=== PATIENT | female | born 1945 | race Caucasian/White ===

== ENCOUNTER → 2018-09-28 | Outpatient (CLI) | payer MEDICARE ==
--- NOTE | 2018-09-28 15:18 | CARD ---
MR#: [id number] Date of Study: 09/28/2018 Ordering Physician: JOSH LEWIS, Referring Physician: JOSH LEWIS Tech: Arabella Khan INESSA APPROVED REPORT EXAM: Two-dimensional and M-mode echocardiogram with Doppler and color Doppler. Other Information Quality : Good INDICATION Peripheral Edema Hypertension/HCVD LV Function:Systolic 2D DIMENSIONS RVDd2.8 (2.9-3.5cm)Left Atrium(2D)3.3 (1.6-4.0cm) IVSd0.9 (0.7-1.1cm)Aortic Root(2D)2.7 (2.0-3.7cm) LVDd4.4 (3.9-5.9cm)LVOT Diameter2.0 (1.8-2.4cm) PWd0.9 (0.7-1.1cm)LVDs2.4 (2.5-4.0cm) FS (%) 30.0 %SV68.3 ml LVEF(%)60.0 (>50%) Aortic Valve AoV Peak Burak.116.1cm/sAoV VTI22.6cm AO Peak GR.5.4mmHgLVOT Peak Burak.105.1cm/s LVOT VTI 20.47cmAO Mean GR.3mmHg AGNES (VMAX)2.48uu0EIV (VTI)2.89cm2 Mitral Valve MV E Dscrkawq23.9cm/sMV DECEL [id number] MV A Lrogauwu96.5cm/sMV TWT17oa E/A Ratio0.5MVA (PHT)2.69cm2 TDI E/Lateral E'9.4E/Medial E'10.7 Pulmonary Vein S1 Jcbmwvrx48.8cm/sD2 Ldkuvrnk11.3cm/s LEFT VENTRICLE The left ventricle is normal size. There is normal left ventricular wall thickness. The left ventricu lar systolic function is normal and the ejection fraction is within normal range. The Ejection Fracti on is 55-60%. There is normal LV segmental wall motion. Transmitral Doppler flow pattern is Grade I-a bnormal relaxation pattern. RIGHT VENTRICLE The right ventricle is normal size. The right ventricular systolic function is normal. ATRIA The left atrium size is normal. The right atrium size is normal. The interatrial septum is intact wit h no evidence for an atrial septal defect or patent foramen ovale as noted on 2-D or Doppler imaging. AORTIC VALVE The aortic valve is calcified but opens well. Doppler and Color Flow revealed trace aortic regurgitat ion. There is no significant aortic valvular stenosis. MITRAL VALVE The mitral valve is calcified but opens well. Mitral annular calcification is mild. There is no evide nce of mitral valve prolapse. There is no mitral valve stenosis. Doppler and Color Flow revealed no m itral valve regurgitation noted. TRICUSPID VALVE The tricuspid valve is normal in structure and function. Doppler and Color Flow revealed trace tricus pid regurgitation. There is no tricuspid valve stenosis. PULMONIC VALVE The pulmonic valve is not well visualized. Doppler and Color Flow revealed no pulmonic valvular regur gitation. There is no pulmonic valvular stenosis. GREAT VESSELS The aortic root is normal in size. The ascending aorta is normal in size. The IVC is normal in size a nd collapses >50% with inspiration. PERICARDIAL EFFUSION There is no evidence of significant pericardial effusion. Critical Notification Critical Value: No <Conclusion> The left ventricular systolic function is normal and the ejection fraction is within normal range. Th e Ejection Fraction is 55-60%. There is normal LV segmental wall motion. Signed by : Major Elaine, Electronically Approved : 09/28/2018 15:17:34
== END | disposition home or self-care (01) ==
LOC: ECHO 13:56
PROVIDERS: ATTEND Family Medicine
DX: I08.0 Rheumatic disorders of both mitral and aortic valves (principal); I10 Essential (primary) hypertension; R60.0 Localized edema
CPT/HCPCS: 93306